=== PATIENT | female | born 1985 | race Caucasian/White ===

== ENCOUNTER 2016-12-30 18:05 | Emergency (ER) | payer SELFPAY ==
[2016-12-30] MEDS ORDERED: TOPAMAX100 M2 PO (20:00)
[2016-12-30] MEDS ORDERED: EFFEXOR XR150 M1 (20:00)
== END 2016-12-30 20:50 ==
LOC: EDMED 18:05
DX: G89.29 Other chronic pain (principal); M54.6 Pain in thoracic spine; M41.9 Scoliosis, unspecified
CPT/HCPCS: J1100